=== PATIENT | female | born 1980 | race African-American/Black ===

== ENCOUNTER 2016-06-09 05:30 | Day surgery (SDC) | payer BC, OTHER ==
[2016-06-06 18:28] VITALS: BMI 21.2
[2016-06-09] MEDS ORDERED: DEXAMETHASONE SOD PHOSPHATE 4 MG/1 ML VIAL ONE (07:26)
[2016-06-09] MEDS ORDERED: LIDOCAINE HCL/PF 2% SDV 5ML VIAL ONE (07:27)
[2016-06-09] MEDS ORDERED: MIDAZOLAM HCL 2 MG/2 ML SINGLE DOSE VIAL ONE (07:27)
[2016-06-09] MEDS ORDERED: PROPOFOL 20 ML ONE (07:27)
[2016-06-09] MEDS ORDERED: DESFLURANE GAS 240 ML BOTTLE IH ONE (07:40)
--- NOTE | 2016-06-09 07:56 | HP ---
Past Medical History - Primary Care Physician PCP:: Slava Rivera - Admission Chief Complaint: 35 yo P1 with cervical mass admitted for excision of mass History of Present Illness: Pt was seen on the office for increased vaginal discharge and found to have an enlarging cervical mass. 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: Alzheimer's, CVA, Dementia, Migraine, Multiple Sclerosis, Peripheral Neuropathy, Parkinson's, Seizure, Syncope, TIA, Vertigo, Other Cardiovascular: No: AFIB, Aneurysm, Aortic Insufficiency, Aortic Stenosis, CAD, CHF, Deep Vein Thrombosis, HTN, Hyperlipdemia, RI, Mitral Insufficiency, Mitral Stenosis, Murmur, Pulmonary Hypertension, Other Pulmonary: No: Asthma, Bronchitis, Cancer, COPD, O2 Dependent, Pneumonia, Previously Intubated, Pulmonary Embolus, Pulmonary Fibrosis, Sleep Apnea, Other Gastrointestinal: No: Ascites, Cancer, Constipation, Crohn's Disease, Diverticulitis, Diverticulosis, Esophageal Varices, Gastritis, GERD, GI Bleed, Hemorrhoids, Hiatal Hernia, Inflamatory Bowel Disease, Irritable Bowel Disease, Pancreatitis, Peptic Ulcer Disease, Ulcerative Colitis, Other Hepatobiliary: No: Cirrhosis, Cholelithiasis, Cholecystitis, Choledocholithiasis , Hepatitis A, Hepatitis B, Hepatitis C, Other Renal/: No: Renal Failure, Renal Inusuff, BPH, Cancer, Hematuria, Hemodialysis , Neurogenic Bladder, Renal Calculi, UTI, Other Reproductive: No: Ectopic , Endometriosis, Fibroids, PID, Polycystic Ovary Syndrome, Postmenopausal, Other ...Para: 1 Heme/Onc: No: Anemia, B12 Deficiency, Bleeding Disorder, Cancer, Current Chemotherapy, Current Radiation Therapy, Hemochromatosis, Hypercoaguable State, Myeloproliferative Synd, Sickle Cell Disease, Sickle Cell Trait, Thrombocytopenia, Other Infectious Disease: No: AIDS, C-Diff, Herpes Zoster, HIV, MRSA, STD's, Tuberculosis, VREF, Other Psych: No: Addictions, Anxiety, Bipolar, Depression, Panic, Psychosis, Schizophrenia, Other Musculoskeletal: No: Bursitis, Chronic low back pain, Hemiparesis, Hemiplegia, Osteoarthritis, Paraplegia, Other Rheumatology: No: Fibromyalgia, Gout, Lupus, Rheumatoid Arthritis, Sarcoidosis, Vasculitis, Other ENT: No: Allergic Rhinitis, Sinusitis, Other Endocrine: No: Jaswinder's Disease, [place]'s Disease, Diabetes Insipidus, Diabetes Mellitus, Hyperparathyroidism, Hyperthyroidism, Hypothyroidism, Osteopenia, SIADH, Other Dermatology: No: Basal Cell, Cellulitis, Eczema, Melanoma, Psoriasis, Squamous Cell, Other - Past Surgical History Past Surgical History: Yes: None Hx Myomectomy: No Hx Transabdominal Cerclage: No - Smoking History Smoking history: Never smoked - Alcohol/Substance Use Hx Alcohol Use: No History of Substance Use: reports: None - Social History Usual Living Arrangement: Yes: With Significant Other, With Child ADL: Independent History of Recent Travel: No Home Medications - Allergies Allergies/Adverse Reactions: Allergies Allergy/AdvReac Type Severity Reaction Status Date / Time aspirin Allergy Severe Verified 06/06/16 18:13 - Home Medications Home Medications: Ambulatory Orders Desog-E.estradiol/E.estradiol [Azurette 28 Day Tablet] 1 each PO DAILY 06/06/16 Naproxen Sodium [Aleve] 220 mg PO PRN 06/06/16 Family Disease History - Family Disease History Family History: Unremarkable Review of Systems - Review of Systems Constitutional: reports: No Symptoms Eyes: reports: No Symptoms HENT: reports: No Symptoms Neck: reports: No Symptoms Cardiovascular: reports: No Symptoms Respiratory: reports: No Symptoms Gastrointestinal: reports: No Symptoms Genitourinary: reports: No Symptoms Breasts: reports: No Symptoms Reported Musculoskeletal: reports: No Symptoms Integumentary: reports: No Symptoms Neurological: reports: No Symptoms Endocrine: reports: No Symptoms Hematology/Lymphatic: reports: No Symptoms Psychiatric: reports: No Symptoms Pain Intensity: 0 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 Vital Signs: Vital Signs Temperature 98.2 F 06/09/16 06:39 Pulse Rate 78 06/09/16 06:39 Respiratory Rate 20 06/09/16 06:39 Blood Pressure 125/72 06/09/16 06:39 O2 Sat by Pulse Oximetry (%) 100 06/09/16 06:35 Constitutional: Yes: Well Nourished, No Distress, Calm Eyes: Yes: WNL, Conjunctiva Clear HENT: Yes: WNL, Atraumatic, Normocephalic Neck: Yes: WNL, Supple, Trachea Midline Cardiovascular: Yes: WNL, Regular Rate and Rhythm Respiratory: Yes: WNL, Regular, CTA Bilaterally Gastrointestinal: Yes: WNL, Normal Bowel Sounds, Soft ...Rectal Exam: Yes: WNL, Deferred Renal/: Yes: WNL Pelvis: Yes: WNL External Genitalia: Yes: Normal Internal Exam Deferred: No Vaginal Exam: Yes: Normal Cervix: Yes: Other (cervical mass) Uterus: Yes: Normal Adnexa: Normal: Left, Right Musculoskeletal: Yes: WNL Extremities: Yes: WNL Edema: No Integumentary: Yes: WNL Neurological: Yes: WNL, Alert, Oriented ...Motor Strength: WNL Psychiatric: Yes: WNL, Alert, Oriented Imaging - Results Ultrasound: Report Reviewed, Image Reviewed Assessment/Plan 35 yo P1 with enlarging cervical mass admitted for mass excision. We discussed the risks, benefits, alternatives of surgery including but not limited to bleeding, infection, hysterectomy, cervical incompetence, etc. The pt verbalized understanding and requested to proceed with surgery.
[2016-06-09] MEDS ORDERED: FERRIC SUBSULFATE 500 ML BOTTLE TP ONE (08:26)
[2016-06-09] MEDS ORDERED: ONDANSETRON 4 MG/2 ML VIAL IVPUSH PRN (08:39)
[2016-06-09] MEDS ORDERED: oxyCODONE HCL 5 MG TABLET PO PRN (08:39)
[2016-06-09] MEDS ORDERED: ACETAMINOPHEN 1000 MG/100 ML VIAL (NON FORMULARY) IVPB ONE (08:40)
[2016-06-09] MEDS ORDERED: LACTATED RINGERS SOLUTION 1,000 ML IV SCH (08:45)
--- NOTE | 2016-06-09 08:46 | OP ---
Operative Note - Note: Operative Date: 06/09/16 Pre-Operative Diagnosis: Cervical mass Operation: Excision of cervical mass Findings: 3x4 cm cervical mass, likely c/w fibroid. Post-Operative Diagnosis: Same as Pre-op Surgeon: Slava Rivera Security Officers And Guards: Franklin Hilton Anesthesia: General Specimens Removed: Cervical mass Estimated Blood Loss (mls): 15 Blood Volume Replaced (mls): 0 Fluid Volume Replaced (mls): 400 Operative Report Dictated: Yes
[2016-06-09 09:54] VITALS: TEMP 98
--- NOTE | 2016-06-09 10:35 | OP ---
DATE OF OPERATION: 06/09/2016 DATE OF DICTATION: 06/09/2016 PROCEDURE: Vaginal Myomectomy, Excision of cervical mass PREOPERATIVE DIAGNOSIS: Cervical mass c/w Cervical FIBROID POSTOPERATIVE DIAGNOSIS: Cervical mass c/w Cervical FIBROID DICTATED BY: Slava Rivera MD PAINTER ASSISTANT: Franklin Hilton MD ANESTHESIOLOGIST: Gil Lebron MD ANESTHESIA: General COMPLICATIONS: None ESTIMATED BLOOD LOSS: 50 mL IV FLUIDS: 400 mL PATHOLOGY: Cervical mass, approximately 3 x 4 cm in size, most likely consistent with the cervical myoma/fibroid. FINDINGS: Examination under anesthesia revealed a large exophytic cervical mass , measuring approximately 3 x 4 cm in size, mostly on the right side of the cervix and deviating the cervix to the left. During surgery, a large encapsulated cervical mass was excised. On gross inspection, it was most consistent with a cervical myoma. PROCEDURE: The patient was met preoperatively. Risks, benefits and alternatives of surgery were discussed in detail. All questions were answered. We discussed at length the risk of infection, bleeding, scarring, hysterectomy, cervical incompetence, need for additional surgery to repair any injuries or complications, et cetera. The patient verbalized understanding and requested to proceed with surgery. The patient was then brought to the OR with the IV running. She was placed on a surgical table in a supine position. General endotracheal anesthesia was achieved without difficulty. The patient was then placed in a dorsal lithotomy position, using adjustable Obed stirrups. She was prepped and draped in the usual sterile fashion. A weighted speculum was introduced inside the vagina. The cervical mass was visualized and grasped with a Char clamp. The cervical mass was then carefully dissected and excised from the cervix using a knife and Metzenbaum scissors. The specimen was submitted to pathology for examination. The wound was then closed using a 2-0 Vicryl suture in a running/locking stitch. Good hemostasis was noted. Once the closure was complete, a Monsel solution was also applied for additional hemostasis. All of the instruments were then removed from the patient. Once again, good hemostasis was confirmed. The patient was returned to supine position. The patient was transferred to recovery room in stable condition. Sponge, lab and instrument counts were correct. Opal PRESLEY/[id number] MTDD
[2016-06-09] MEDS ORDERED: oxyCODONE HCL 5 MG TABLET ONE (10:47)
[2016-06-09 13:35] VITALS: BP 120/68; PULSE 67
--- NOTE | 2016-06-12 13:01 | PATH ---
Surgical Pathology Report Patient Name: LEANDRO ELIZALDE [facility]. Rec. #: [id number] /Age/Gender: 1980 (Age: 35) / F Account: [id number] Location: [facility] SURGICAL Taken: 06/09/2016 Received: 06/09/2016 Reported: 06/12/2016 Physicians: Opal Wall M.D. Specimen(s) Received MASS OF CERVIX Clinical History Cervical mass Final Diagnosis CERVIX, MASS, EXCISION: CONSISTENT WITH SUPERFICIAL TYPE MYOFIBROBLASTOMA (SEE COMMENT). MARKED CHRONIC CERVICITIS. Comment: The sections show a well-circumscribed mesenchymal tumor comprised of bland appearing spindle shaped cells without significant cytological atypia arranged in a haphazard and loose fascicular pattern within fibrous and myofibrous stroma. Many thin walled vessels are present. No thick walled hyalinized vessels of epithelioid appearing cells are identified. No mitotic activity necrosis is identified. Overlying benign inflamed squamous epithelium from the tumor by Grenz type zone is present. Immunohistochemical stains performed and interpreted [facility] on block #3 show the tumor cells are negative for SMM-HC, S100 and Ae1/Ae3 immunostains. Additional immunohistochemical stains performed at the [facility], [place], [place] ([id number]) on block #3 and interpreted at [facility] show the following: The tumor cells are positive for ER, CT, CD34 and CD99 immunostains, focally positive for BCL2 and Desmin immunostains, and are negative for SMA immunostain. 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 These tumorous are benign neoplasms; they may locally recur usually following incomplete excision. The case was discussed with Dr. Hilton on 06/12/16. Electronically Signed Estevan Garner M.D. Gross Description Received in formalin, labeled "mass, cervix" is a 19 g, 4.6 x 3.0 x 2.5 cm reed, irregular, firm to rubbery mass. The outer surface is reed and smooth. Sectioning reveals homogeneous reed fibrous parenchyma. No areas of hemorrhage or necrosis are identified. Also received within the same container are 4 reed, irregular, unoriented soft tissue fragments ranging from 0.8-2.0 cm in greatest dimension. Cosmetics Supervisor sections are submitted in 4 cassettes as follows: 2-7-ptsdhnft of mass; 4-separately received soft tissue fragments. 06/09/201606/09/2016
== END 2016-06-09 13:00 | disposition home or self-care (01) ==
LOC: JASU-SURG 05:30
PROVIDERS: ATTEND Obstetrics & Gynecology
PROC: 0UBC7ZZ Excision of Cervix, Via Natural or Artificial Opening (ICD-10-PCS; principal; 2016-06-09 07:30)
DX: D26.0 Other benign neoplasm of cervix uteri (principal)
CPT/HCPCS: 84703; 88307-TC; 88341-TC; 88342-TC; 94010; 94760

== ENCOUNTER 2020-04-30 04:33 | Day surgery (SDC) | payer BC, OTHER ==
[2020-04-24 17:30] VITALS: BMI 21.4
[2020-04-30] MEDS ORDERED: PROPOFOL 20 ML ONE ×2 (09:44→12:07)
[2020-04-30] MEDS ORDERED: MIDAZOLAM HCL 2 MG/2 ML SINGLE DOSE VIAL ONE (12:03)
[2020-04-30] MEDS ORDERED: ceFAZolin SODIUM 1 GM VIAL ONE (12:14)
[2020-04-30] MEDS ORDERED: LIDOCAINE 1%/EPI 1:100000 (50 ML MULTI DOSE VIAL) ONE (12:14)
[2020-04-30] MEDS ORDERED: ceFAZolin SODIUM 1 GM VIAL IVPB ONE (12:15)
[2020-04-30] MEDS ORDERED: LIDOCAINE 1%/EPI 1:100000 (50 ML MULTI DOSE VIAL) INF ONE (12:25)
[2020-04-30] MEDS ORDERED: ONDANSETRON 4 MG/2 ML VIAL IVPUSH PRN (12:50)
[2020-04-30] MEDS ORDERED: oxyCODONE HCL 5 MG TABLET PO PRN (12:50)
[2020-04-30] MEDS ORDERED: ACETAMINOPHEN 325 MG TABLET (FP) PO PRN (12:50)
[2020-04-30] MEDS ORDERED: LACTATED RINGERS SOLUTION 1,000 ML IV SCH (13:00)
[2020-04-30 13:57] VITALS: TEMP 98
[2020-04-30 14:34] VITALS: BP 130/62; PULSE 66
== END 2020-04-30 14:40 | disposition home or self-care (01) ==
LOC: JASU-SURG 04:33
PROVIDERS: ATTEND Obstetrics & Gynecology
PROC: 0UBC7ZZ Excision of Cervix, Via Natural or Artificial Opening (ICD-10-PCS; principal; 2020-04-30)
DX: D26.0 Other benign neoplasm of cervix uteri (principal); D28.1 Benign neoplasm of vagina
CPT/HCPCS: 84703; 88307-TC; 88342-TC; 94760